=== PATIENT | male | born 1965 | race Caucasian/White ===

== ENCOUNTER 2019-11-02 13:58 | Inpatient (IN) ==
[2019-11-02] MEDS ORDERED: Amoxicillin/Clavul 875/125 TAB (Augmentin 875 tab) PO ONE (14:38)
[2019-11-02] MEDS ORDERED: Tetan/Diph/Pertus SYR(Tdap) 0.5 ML SYR(BOOSTRIX) use SYR contains LATEX IM ONE (14:40)
[2019-11-02] MEDS ORDERED: Clindamycin 600 MG/D5W BAG 600 MG/50 ML BAG IV ONE (16:21)
[2019-11-02] MEDS ORDERED: diPHENhydraMINE 25 mg TAB PO PRN (17:10)
[2019-11-02] MEDS ORDERED: Ondansetron ODT 4 mg TAB 4 MG TAB PO PRN (17:10)
[2019-11-02] MEDS ORDERED: Morphine 2 MG/ML SYRINGE IV PRN (17:10)
[2019-11-02] MEDS ORDERED: diPHENhydraMINE IV 50 MG/ML 1 ml VIAL (BENADRYL) IV PRN (17:10)
[2019-11-02] MEDS ORDERED: Lactulose 30 ml UDC PO PRN (17:10)
[2019-11-02] MEDS ORDERED: Ondansetron 4 mg VIAL 2 MG/ML 2 ml VIAL IV PRN (17:10)
[2019-11-02] MEDS ORDERED: Magnesium Hydroxide LIQ 30 ML UDC PO PRN (17:10)
[2019-11-02 18:00] LABS: ABS Basophils 0.1 10^3/ul (0-0.2); ABS Eosinophils 0.3 10^3/ul (0-0.6); ABS Lymphocytes 1.7 10^3/ul (1.0-4.8); ABS Monocytes 0.8 10^3/ul (0-0.8); ABS Neutrophils 6.2 10^3/ul (1.5-7.7); Eosinophil % 3.1 %; Hematocrit 47 % (42-52); Lymphocyte % 18.8 %; Mean Corpuscular HGB Conc 34 g/dL (31-36); Mean Corpuscular Hemoglobin 32 pg (27-31); Mean Corpuscular Volume 92 fL (80-94); Mean Platelet Volume 9.4 fL (7.4-10.4); Nucleated Red Blood Cells % 0.1; Platelet Count 214 10^3/uL (150-450); Red Blood Count 5.09 10^6 /uL (4.18-5.48); Red Cell Distribution Width 14 % (10-15)
[2019-11-02] MEDS ORDERED: Zosyn per Pharmacy NOTE FOLLOW UP SCH (18:00)
[2019-11-02 18:09] LABS: Activated Partial Thrombo Time 30.2 seconds (26.0-38.0); INR 1.13 (0.82-1.09)
[2019-11-02 18:10] LABS: Albumin/Globulin Ratio 1.7 (1-3); BUN/Creatinine Ratio 9.9 (8-20); C Reactive Protein 59.45 mg/L (<8.01); Globulin 2.9 g/dL (2-4); Potassium 3.9 mmol/L (3.5-5.0); Total Bilirubin 0.9 mg/dL (0.2-1.0); Total Protein 7.9 g/dL (6.4-8.9)
[2019-11-02] MEDS ORDERED: ZOSYN 3.375 GM x ONE DOSE over 30 miuntes IV (18:30)
[2019-11-02] MEDS ORDERED: Heparin 5000 UNITS/ML 1 mL VIAL SUBCUT SCH (21:00)
[2019-11-02] MEDS: Magnesium Hydroxide LIQ 30 ML UDC PO SCH (22:12)
[2019-11-02 22:29] LABS: Erythrocyte Sed Rate 8 mm/Hr (0-19)
[2019-11-02] MEDS: ZOSYN 3.375 GM Q8H per EXTENDED INFUSION IV SCH (23:24)
[2019-11-03] MEDS: Magnesium Hydroxide LIQ 30 ML UDC PO SCH ×2 (07:26→21:54)
[2019-11-03] MEDS: Vitamin THERAPEUTIC TAB PO SCH (07:27)
[2019-11-03] MEDS: ZOSYN 3.375 GM Q8H per EXTENDED INFUSION IV SCH ×3 (07:28→23:37)
[2019-11-03] MEDS ORDERED: Bupivacaine 0.25% SDV 30 ML ONE (11:12)
[2019-11-03] MEDS ORDERED: Midazolam 2 mg/2 ml VIAL 1 mg/ml 2 ml VIAL (2 mg) ONE (11:19)
[2019-11-03] MEDS ORDERED: Lidocaine 2% PF 5 ML VIAL ONE (11:19)
[2019-11-03] MEDS ORDERED: fentaNYL 100 mcg/2 ml 50 MCG/ML VIAL ONE (11:19)
[2019-11-03] MEDS ORDERED: Propofol 10 MG/ML 20 ML BTL ONE (11:19)
[2019-11-03] MEDS ORDERED: diPHENhydraMINE IV 50 MG/ML 1 ml VIAL (BENADRYL) IV PRN (11:23)
[2019-11-03] MEDS ORDERED: Naloxone 0.4 mg VIAL 0.4 mg/ml 1 ml VIAL IV PRN (11:23)
[2019-11-03] MEDS ORDERED: HYDROmorphone 1 MG/1 ML SYRINGE IV PRN (11:23)
[2019-11-03] MEDS ORDERED: Prochlorperazine 5 mg/ml 2 ml VIAL (10 mg) IV PRN (11:23)
[2019-11-03] MEDS ORDERED: Dexamethasone IV 4 MG/ML VIAL 1 ml VIAL ONE (11:56)
[2019-11-03] MEDS ORDERED: Ondansetron 4 mg VIAL 2 MG/ML 2 ml VIAL ONE (11:56)
[2019-11-04] MEDS: ZOSYN 3.375 GM Q8H per EXTENDED INFUSION IV SCH ×3 (07:51→23:15)
[2019-11-04 09:20] LABS: ABS Lymphocytes 1.2 10^3/ul (1.0-4.8); ABS Monocytes 0.6 10^3/ul (0-0.8); ABS Neutrophils 7.2 10^3/ul (1.5-7.7); Eosinophil % 0.3 %; Hematocrit 40 % (42-52); Lymphocyte % 13.4 %; Mean Corpuscular HGB Conc 35 g/dL (31-36); Mean Corpuscular Hemoglobin 32 pg (27-31); Mean Corpuscular Volume 91 fL (80-94); Mean Platelet Volume 9.2 fL (7.4-10.4); Platelet Count 199 10^3/uL (150-450); Red Blood Count 4.43 10^6 /uL (4.18-5.48); Red Cell Distribution Width 14 % (10-15); White Blood Count 9.1 10^3/uL (3.5-10.8)
[2019-11-04 09:41] LABS: BUN/Creatinine Ratio 12.2 (8-20); EGFR African American 74.2 (>60); EGFR Non-African American 61.3 (>60)
[2019-11-04] MEDS: Vitamin THERAPEUTIC TAB PO SCH (10:12)
[2019-11-04] MEDS: Magnesium Hydroxide LIQ 30 ML UDC PO SCH ×3 (10:12→22:22)
[2019-11-05 05:53] LABS: ABS Basophils 0.1 10^3/ul (0-0.2); ABS Eosinophils 0.3 10^3/ul (0-0.6); ABS Lymphocytes 1.8 10^3/ul (1.0-4.8); ABS Monocytes 0.4 10^3/ul (0-0.8); Hematocrit 42 % (42-52); Hemoglobin 14.1 g/dL (14.0-18.0); Lymphocyte % 31.7 %; Mean Corpuscular HGB Conc 34 g/dL (31-36); Mean Corpuscular Hemoglobin 32 pg (27-31); Mean Corpuscular Volume 94 fL (80-94); Mean Platelet Volume 9.5 fL (7.4-10.4); Nucleated Red Blood Cells % 0.2; Platelet Count 195 10^3/uL (150-450); Red Blood Count 4.42 10^6 /uL (4.18-5.48); Red Cell Distribution Width 14 % (10-15); White Blood Count 5.7 10^3/uL (3.5-10.8)
[2019-11-05] MEDS: Magnesium Hydroxide LIQ 30 ML UDC PO SCH (07:27)
[2019-11-05] MEDS: ZOSYN 3.375 GM Q8H per EXTENDED INFUSION IV SCH ×2 (07:32→16:22)
[2019-11-05] MEDS: Vitamin THERAPEUTIC TAB PO SCH (07:32)
[2019-11-05] MEDS ORDERED: PTO: Fexofenadine 180 mg TAB (NF) PO SCH (09:00)
[2019-11-05 11:15] VITALS: BP 140/88
== END 2019-11-05 16:20 | disposition home or self-care (01) | DRG 513 ==
LOC: ED 13:58 → SSU 17:10
PROVIDERS: ADMIT Orthopaedic Surgery Hand Surgery; ATTEND Orthopaedic Surgery Hand Surgery